=== PATIENT | female | born 1955 | race African-American/Black ===

== ENCOUNTER 2016-08-21 22:59 | Emergency (ER) | payer MEDICAID ==
[~2016-08-21] VITALS: Ht 160 cm; Wt 52.2 kg
[~2016-08-21 22:59] MED LIST: ACETAMINOPHEN-1 EAC2 ORAL; ACETAMINOPHEN-1 EAC2 PO; ANTIVERT12.5 MG PO; ATIVAN0.5 MG ORAL; BACITRACIN ZIN120 GM TP; CLARITIN10 M1 PO; FLONASE1 SPRAYS NASAL; GLUCOPHAGE500 MG PO; GLYBURIDE-METF1 EAC1 PO; KEFLEX500 MG ORAL; LIDOCAINE HCL30 ML TOPIC; MECLIZINE HCL25 MG ORAL; NORCO 5-325 TA1 EACH ORAL; PHENAZOPYRIDIN100 MG ORAL; SOMA350 MG PO; TYLENOL EXTRA500 MG ORAL; VALIUM2 MG PO; VALIUM5 MG ORAL
[2016-08-21 23:20] VITALS: BP 135/71
[2016-08-21 23:43] VITALS: BP 135/71
--- NOTE | 2016-08-22 01:06 | Emergency Room Report ---
History of Present Illness General Chief Complaint: Pain Source: Patient Present Illness HPI Patient is a 61-year-old female who presented after increased right upper extremity pain. The patient stated that she had a venipuncture several months ago and developed some bruising afterward. Patient reported having a firm area near her right hand antecubital fossa. She states that this had persistently been noted to be hard. She denied recent fever. She denied chest pain or shortness of breath. The patient was concerned that this area had remained somewhat painful. Allergies: Coded Allergies: IBUPROFEN (Verified Adverse Reaction, Intermediate, HEART PALPATATIONS, ) Patient History Past Medical History: see triage record Reviewed Nursing Documentation: PMH: Agreed, PSxH: Agreed Nursing Documentation-PMH Hx Cardiac Problems: No Hx Hypertension: No Hx Diabetes: Yes Hx Cancer: No Hx Gastrointestinal Problems: No Hx Neurological Problems: No Hx Cerebrovascular Accident: No - HYSTERECTOMY 04/30/14 Review of Systems All Other Systems: negative except mentioned in HPI Physical Exam Vital Signs Date Time Temp Pulse Resp B/P Pulse Ox O2 Delivery O2 Flow Rate FiO2 08/21/16 23:05 98.1 97 16 137/71 98 Room Air General Appearance: well appearing, no apparent distress, alert, GCS 15 Head: normocephalic, atraumatic ENT: hearing grossly normal, normal voice Neck: full range of motion, supple Respiratory: no respiratory distress, speaking full sentences Gastrointestinal: normal bowel sounds, non tender, soft Musculoskeletal: normal inspection, back normal, digits/nails normal, no calf tenderness Neurologic: normal inspection, alert, oriented x3, responsive, normal gait Psychiatric: mood/affect normal Skin: no rash, other - small palpable vein less than 1 cm no erythema Medical Decision Making Diagnostic Impression: Primary Impression: Superficial phlebitis of arm ER Course Patient presented for upper extremity pain. Differential diagnosis included but was not limited to fracture, contusion, vasculitis, phlebitis. Patient has a benign exam this is not appear to require imaging at this time. Patient does not appear to have any upper extremity swelling. This appears to be a sclerosed vein. The patient is advised to follow up with primary care doctor in 1-2 days. Patient is advised to return if any worsening condition or if any changes in status that are concerning. Last Vital Signs Date Time Temp Pulse Resp B/P Pulse Ox O2 Delivery O2 Flow Rate FiO2 1/20/17 23:05 98.1 97 16 137/71 98 Room Air Status: improved Disposition: HOME, SELF-CARE Condition: Stable Referrals: ERMELINDA RICHMOND,REFERRING (PCP) Patient Instructions: Nish Hinson Aug 22, 2016 01:06
== END 2016-08-21 23:45 | disposition home or self-care (01) ==
LOC: EMR 23:45
DX: I80.8 Phlebitis and thrombophlebitis of other sites (principal); E11.9 Type 2 diabetes mellitus without complications; Z88.6 Allergy status to analgesic agent
CPT/HCPCS: 99282

== ENCOUNTER 2016-12-03 20:40 | Emergency (ER) | payer MEDICAID ==
[~2016-12-03] VITALS: Ht 152.4 cm; Wt 51.7 kg
[2016-12-03 20:51] VITALS: BP 151/80
[2016-12-03] MEDS ORDERED: LIDOCAINE VISCO20 ML PO (21:03)
[2016-12-03] MEDS ORDERED: CLARITIN10 M2 ORAL (21:03)
[2016-12-03 21:09] VITALS: BP 145/76
--- NOTE | 2016-12-04 00:49 | Emergency Room Report ---
History of Present Illness General Chief Complaint: Sore Throat Source: Patient Present Illness HPI Patient is a 61-year-old female who presented after increased sore throat as well as a nasal congestion. Patient gradual onset of symptoms. The patient had reported some postnasal drip. She denies recent fever. She been sick for several days. Denied any cough. She reported having some mild change in her voice. She denies vomiting. Allergies: Coded Allergies: IBUPROFEN (Verified Adverse Reaction, Intermediate, HEART PALPATATIONS, ) Patient History Past Medical History: see triage record Reviewed Nursing Documentation: PMH: Agreed, PSxH: Agreed Nursing Documentation-PMH Hx Cardiac Problems: No Hx Hypertension: No Hx Diabetes: Yes Hx Cancer: No Hx Gastrointestinal Problems: No Hx Neurological Problems: No Hx Cerebrovascular Accident: No - HYSTERECTOMY 04/30/14 Review of Systems All Other Systems: negative except mentioned in HPI Physical Exam Vital Signs Date Time Temp Pulse Resp B/P Pulse Ox O2 Delivery O2 Flow Rate FiO2 12/03/16 20:45 98.4 73 16 159/79 100 Room Air General Appearance: well appearing, no apparent distress, alert, GCS 15, non- toxic Head: normocephalic, atraumatic ENT: hearing grossly normal, normal voice Neck: full range of motion, supple Respiratory: lungs clear, normal breath sounds, no respiratory distress, speaking full sentences Cardiovascular #1: normal peripheral pulses, regular rate, rhythm, no edema Gastrointestinal: normal bowel sounds, non tender, soft Musculoskeletal: no calf tenderness Neurologic: normal inspection, alert, oriented x3, normal gait Psychiatric: normal inspection, mood/affect normal Skin: no rash Medical Decision Making Diagnostic Impression: Primary Impression: Viral pharyngitis ER Course Patient presented for sore throat. Differential diagnosis included but was not limited to meningitis, exudative tonsillitis, retropharyngeal abscess, epiglottitis, strep pharyngitis. Patient's benign exam and does not appear to require any further imaging or laboratory testing at this time. Patient appears to have viral pharyngitis.The patient is advised to follow up with primary care doctor in 2-3 days. Patient is advised to return if any worsening condition or if any changes in status that are concerning. Last Vital Signs Date Time Temp Pulse Resp B/P Pulse Ox O2 Delivery O2 Flow Rate FiO2 12/03/16 21:09 98.4 81 15 145/76 100 Room Air Status: improved Disposition: HOME, SELF-CARE Condition: Stable Scripts Loratadine (CLARITIN) 10 Mg Capsule 10 MG ORAL DAILY, #30 CAP Prov: Nish Stevenson 12/03/16 Lidocaine HCl (Lidocaine HCl Viscous) 100 Ml Solution 20 ML PO NEEDED for For Pain, #200 ML Prov: Nish Stevenson 12/03/16 Referrals: [facility],REFERRING (PCP) Patient Instructions: Laryngitis Nish Stevenson December 04, 2016 00:49
== END 2016-12-03 21:09 | disposition home or self-care (01) ==
LOC: EMR 21:05
DX: J02.8 Acute pharyngitis due to other specified organisms (principal); B97.89 Other viral agents as the cause of diseases classified elsewhere; E11.9 Type 2 diabetes mellitus without complications; Z88.6 Allergy status to analgesic agent; Z90.710 Acquired absence of both cervix and uterus
CPT/HCPCS: 99284

== ENCOUNTER 2017-11-17 20:38 | Emergency (ER) | payer MEDICARE, MEDICAID ==
[~2017-11-17] VITALS: Ht 152.4 cm; Wt 48.1 kg
[~2017-11-17 20:38] MED LIST changes: +CLARITIN10 M2 ORAL; +LIDOCAINE VISCO20 ML PO
[2017-11-17 20:48] VITALS: BP 144/76
[2017-11-17] MEDS ORDERED: AMOXICILLIN500 MG ORAL (21:11)
--- NOTE | 2017-11-17 21:12 | Emergency Room Report ---
History of Present Illness General Chief Complaint: Toothache Source: Patient Present Illness HPI This is a 62-year-old female with no significant past medical history. She presents with dental pain. 2 weeks ago she was eating and bit down on something hard and cracked her left lower molar. The filling came out. She's been having pain since there.. Worse with eating. Worse with cold or hot stuff. Gum irritation. No swelling. Has not seen a dentist yet. Pain is 7 out of 10. Allergies: Coded Allergies: IBUPROFEN (Verified Adverse Reaction, Intermediate, HEART PALPATATIONS, ) Patient History Past Medical History: see triage record, old chart reviewed Past Surgical History: other Pertinent Family History: none Social History: Denies: smoking Now: No Immunizations: other Reviewed Nursing Documentation: PMH: Agreed; PSxH: Agreed Nursing Documentation-PMH Hx Cardiac Problems: No Hx Hypertension: No Hx Diabetes: Yes - Type 2 Hx Cancer: No Hx Gastrointestinal Problems: No History Of Psychiatric Problem: Yes - anxiety, depression Hx Neurological Problems: No Hx Cerebrovascular Accident: No - HYSTERECTOMY 04/30/14 Review of Systems Eye: Denies: eye pain, blurred vision ENT: Denies: ear pain, nose congestion, throat swelling Respiratory: Denies: cough, shortness of breath Cardiovascular: Denies: chest pain, palpitations Gastrointestinal: Denies: abdominal pain, diarrhea, nausea, vomiting Musculoskeletal: Denies: back pain, joint pain Skin: Denies: rash Neurological: Denies: headache, numbness Endocrine: Denies: increased thirst, increased urine Hematologic/Lymphatic: Denies: easy bruising All Other Systems: negative except mentioned in HPI Physical Exam Vital Signs Date Time Temp Pulse Resp B/P (MAP) Pulse Ox O2 Delivery O2 Flow Rate FiO2 11/17/17 20:41 98.3 73 14 144/76 98 Room Air 98.2 vitals normal Sp02 EP Interpretation: reviewed, normal General Appearance: well appearing, no apparent distress, alert Head: normocephalic, atraumatic Eyes: bilateral eye PERRL, bilateral eye EOMI ENT: hearing grossly normal, normal pharynx, other - Poor dentition. Left lower second molar has decay. No abscess for I and D. Neck: full range of motion, supple, no meningismus Respiratory: chest non-tender, lungs clear, normal breath sounds Cardiovascular #1: regular rate, rhythm, no murmur Gastrointestinal: normal bowel sounds, non tender, no mass, no organomegaly, no bruit, non-distended Musculoskeletal: back normal, gait/station normal, normal range of motion Psychiatric: mood/affect normal Skin: warm/dry Medical Decision Making Diagnostic Impression: Primary Impression: Toothache ER Course Patient with toothache. No evidence of abscess neck and twice a day. We'll discharge home with referral to see a dentist. Last Vital Signs Date Time Temp Pulse Resp B/P (MAP) Pulse Ox O2 Delivery O2 Flow Rate FiO2 11/17/17 20:48 98.2 73 14 144/76 98 Room Air 98.2 Status: unchanged Disposition: HOME, SELF-CARE Condition: Stable Scripts Amoxicillin* (AMOXIL*) 500 Mg Capsule 500 MG ORAL THREE TIMES A DAY, #21 CAP Prov: FRANKIE GOODMAN M.D. 11/17/17 Patient Instructions: Dental Pain Additional Instructions: Go see dentist ABDIEL. Return if symptom worsen. FRANKIE GOODMAN M.D. Nov 17, 2017 21:12
[2017-11-17 21:21] VITALS: BP 144/76
== END 2017-11-17 21:21 | disposition home or self-care (01) ==
LOC: EMR 21:17
DX: K08.89 Other specified disorders of teeth and supporting structures (principal); E11.9 Type 2 diabetes mellitus without complications; F41.9 Anxiety disorder, unspecified; F32.9 Major depressive disorder, single episode, unspecified; Z90.710 Acquired absence of both cervix and uterus; Z88.6 Allergy status to analgesic agent
CPT/HCPCS: 99283

== ENCOUNTER 2018-06-05 11:27 | Emergency (ER) | payer MEDICARE, MEDICAID ==
[~2018-06-05] VITALS: Ht 152.4 cm; Wt 49.4 kg
[~2018-06-05 11:27] MED LIST changes: +AMOXICILLIN500 MG ORAL
[2018-06-05 11:54] VITALS: BP 133/64
[2018-06-05] MEDS ORDERED: Bactrim Susp 20ml ORAL STA (11:56)
--- NOTE | 2018-06-05 11:59 | Emergency Room Report ---
History of Present Illness General Chief Complaint: Skin Rash/Abscess Source: Patient Present Illness HPI Patient with cyst on neck many months. Scheduled to have surgery. Possibly slept on it wrong and now has enlargement, redness and increased tenderness for 2 days. Pain rated 3/10 aching and somewhat sharp, not radiating. Worse when palpated. Some pain with rotation of neck. Denies fever or chills. No chest pain, dyspnea, NVD. Some constipation. Patient diabetic. States sugars have been slightly higher recently. Chronic back pain. Unchanged. Anxiety. > 10 years since tetanus, but refuses. She states she cannot swallow pills. Allergies: Coded Allergies: IBUPROFEN (Verified Adverse Reaction, Intermediate, HEART PALPATATIONS, ) Patient History Past Medical History: see triage record Past Surgical History: hysterectomy Social History: Denies: smoking Social History Narrative from home Reviewed Nursing Documentation: PMH: Agreed; PSxH: Agreed Nursing Documentation-PMH Past Medical History: No History, Except For Hx Cardiac Problems: No Hx Hypertension: No Hx Diabetes: Yes - Type 2 Hx Cancer: No Hx Gastrointestinal Problems: No Hx Neurological Problems: No Hx Cerebrovascular Accident: No - HYSTERECTOMY 04/30/14 Review of Systems All Other Systems: negative except mentioned in HPI Physical Exam Vital Signs Date Time Temp Pulse Resp B/P (MAP) Pulse Ox O2 Delivery O2 Flow Rate FiO2 06/05/18 11:32 98.2 82 17 133/64 97 Room Air Sp02 EP Interpretation: reviewed, normal General Appearance: well appearing, no apparent distress Head: normocephalic, atraumatic Eyes: bilateral eye normal inspection, bilateral eye PERRL ENT: hearing grossly normal, normal voice, moist mucus membranes Neck: full range of motion, supple, other - see skin Respiratory: lungs clear, no respiratory distress, speaking full sentences Cardiovascular #1: regular rate, rhythm Cardiovascular #2: 2+ radial (R) Gastrointestinal: normal inspection Musculoskeletal: back normal, digits/nails normal, gait/station normal, normal range of motion Neurologic: alert, oriented x3, normal gait, grossly normal Psychiatric: mood/affect normal, anxious Skin: other - sebaceous cyst R ant SCM, surrounding erythema, no fluctuance Medical Decision Making Diagnostic Impression: Primary Impression: Infected cyst of skin ER Course Patient with cyst on neck with worsened pain. DDX: abscess, cellulitis, infected cyst. This appears that the cyst has surrounding cellulitis. Antibiotics indicated as well as analgesia. Tetanus suggested but refused. Antibiotics begun here. Patient stable for outpatient observation and treatment. Last Vital Signs Date Time Temp Pulse Resp B/P (MAP) Pulse Ox O2 Delivery O2 Flow Rate FiO2 06/05/18 12:41 98.2 73 17 133/64 97 Room Air Status: improved Disposition: HOME, SELF-CARE Condition: Improved Scripts Bacitracin (Bacitracin) 1 Each Packet 1 EACH TP BID for 10 Days, #20 PACKET Prov: Chandana Heller 06/05/18 Acetaminophen (Tylenol) 325 Mg Tablet 650 MG ORAL Q6H PRN for Prn Pain/Headache/Temp > 101, #20 TAB 0 Refills Prov: Santiago Baez MD 06/05/18 Sulfamethoxazole/Trimethoprim Susp* (BACTRIM SUSP*) 473 Ml Oral.susp 20 ML ORAL TWICE A DAY for 7 Days, ML Prov: Santiago Baez MD 06/05/18 Santiago Baez MD Jun 05, 2018 11:59
[2018-06-05] MEDS ORDERED: Bacitracin Oint UD TOPIC ONE (12:00)
[2018-06-05] MEDS ORDERED: TYLENOL325 MG ORAL (12:06)
[2018-06-05] MEDS ORDERED: SULFAMETHOXAZO473 ML ORAL (12:06)
[2018-06-05] MEDS ORDERED: BACITRACIN1 EAC1 TP (12:35)
== END 2018-06-05 12:49 | disposition home or self-care (01) ==
LOC: EMR 12:40
DX: L72.9 Follicular cyst of the skin and subcutaneous tissue, unspecified (principal); L08.89 Other specified local infections of the skin and subcutaneous tissue; E11.9 Type 2 diabetes mellitus without complications
CPT/HCPCS: 99282

== ENCOUNTER 2019-03-05 11:35 | Emergency (ER) | payer MEDICARE, MEDICAID ==
[~2019-03-05] VITALS: Ht 152.4 cm; Wt 45.4 kg
[~2019-03-05 11:35] MED LIST changes: +BACITRACIN1 EAC1 TP; +SULFAMETHOXAZO473 ML ORAL; +TYLENOL325 MG ORAL
[2019-03-05 11:43] VITALS: BP 154/74
--- NOTE | 2019-03-05 11:49 | NUR ---
ED Nurse Note: patient walked into ED c/o bug bites on her back and on the right eyelid. patient c/o itchiness and swelling.
[2019-03-05] MEDS ORDERED: DiphenhydrAMINE & Zinc 28g Cream TOPIC ONE (12:00)
[2019-03-05] MEDS ORDERED: Dexamethasone 4mg/ml vial ORAL ONE (12:00)
[2019-03-05] MEDS ORDERED: HYDROCO (12:08)
[2019-03-05] MEDS ORDERED: ANTI-ITCH28 G1 TP (12:08)
--- NOTE | 2019-03-05 12:08 | Emergency Room Report ---
History of Present Illness General Chief Complaint: Animal Bite Source: Patient Present Illness HPI 63-year-old female presents with itching she states some things been biting her for 1.5 weeks, she has a rash, on her right upper back, left arm, right eye, she states the severity is moderate, aggravated by bites, alleviated with cream , patient denies any chest pain shortness of breath, patient is concerned that there is something in her house. Allergies: Coded Allergies: IBUPROFEN (Verified Adverse Reaction, Intermediate, HEART PALPATATIONS, ) Patient History Past Medical History: see triage record Now: No Reviewed Nursing Documentation: PMH: Agreed; PSxH: Agreed Nursing Documentation-PMH Past Medical History: No History, Except For Hx Hypertension: No Hx Diabetes: Yes - Type 2 Hx Cancer: No Hx Gastrointestinal Problems: No Hx Neurological Problems: No Hx Cerebrovascular Accident: No - HYSTERECTOMY 04/30/14 Review of Systems All Other Systems: negative except mentioned in HPI Physical Exam Vital Signs Date Time Temp Pulse Resp B/P (MAP) Pulse Ox O2 Delivery O2 Flow Rate FiO2 03/05/19 11:43 99.0 81 17 154/74 (100) 95 Room Air Sp02 EP Interpretation: reviewed, normal General Appearance: well appearing, no apparent distress, alert Head: normocephalic, atraumatic Eyes: bilateral eye PERRL, bilateral eye EOMI ENT: uvula midline, moist mucus membranes Neck: supple, thyroid normal, supple/symm/no masses Respiratory: lungs clear, no respiratory distress, no retraction, no accessory muscle use Cardiovascular #1: normal peripheral pulses, regular rate, rhythm, no edema, no gallop, no murmur Gastrointestinal: non tender, soft, no guarding, no rebound Musculoskeletal: normal inspection Neurologic: alert, oriented x3 Psychiatric: mood/affect normal Skin: warm/dry, other - Patient with urticarial rashes right upper back, left hand, right arm, small punctate lesions in the middle Medical Decision Making Diagnostic Impression: Primary Impression: Insect bite Qualified Codes: S40.861A - Insect bite (nonvenomous) of right upper arm, initial encounter; W57.XXXA - Bitten or stung by nonvenomous insect and other nonvenomous arthropods, initial encounter ER Course 63-year-old female presents with multiple bites to the upper arm, low suspicion for cellulitis most likely histamine release secondary to insect bite, patient has her door open at night, patient counseled to close her door because she does not have a screen, disposition home with return precautions. Will provide patient with hydrocortisone and Benadryl cream Last Vital Signs Date Time Temp Pulse Resp B/P (MAP) Pulse Ox O2 Delivery O2 Flow Rate FiO2 03/05/19 11:43 99.0 62 17 154/74 95 Room Air Disposition: HOME, SELF-CARE Condition: Stable Scripts Hydrocortisone 2% Cream (ANTI-ITCH 2% CREAM) Y Cr 28 GM TP DAILY, #1 GM Prov: Jose Dangelo MD 03/05/19 [hydroco] No Conflict Check Prov: Jose Dangelo MD 03/05/19 Referrals: [facility] Patient Instructions: Insect Bite, [id number] Additional Instructions: The patient was provided with discharge instructions, notified to follow-up with a primary care doctor and or specialist in the next 24-48 hours, and to return to the ED if they have worsening of their symptoms. Please note that this report is being documented using [employer] technology. This can lead to erroneous entry secondary to incorrect interpretation by the dictating instrument. Jose Dangelo MD Mar 05, 2019 12:08
--- NOTE | 2019-03-05 12:14 | NUR ---
ER DISCHARGE NOTE: Patient is cleared to be discharged per ERMD, pt is aox4, on room air, with stable vital signs. pt was given dc and prescription instructions, pt was able to verbalize understanding, pt id band removed. pt is able to ambulate with steady gait. pt took all belongings.
[2019-03-05] MEDS ORDERED: Hydrocortisone 2.5% Oint 30gm TOPIC ONE (12:15)
== END 2019-03-05 13:12 | disposition home or self-care (01) ==
LOC: EMR 12:15
DX: S40.861A Insect bite (nonvenomous) of right upper arm, initial encounter (principal); W57.XXXA Bitten or stung by nonvenomous insect and other nonvenomous arthropods, initial encounter; E11.9 Type 2 diabetes mellitus without complications; Z90.710 Acquired absence of both cervix and uterus; Z88.6 Allergy status to analgesic agent; L50.9 Urticaria, unspecified
CPT/HCPCS: 99282

== ENCOUNTER 2020-03-13 13:34 | Emergency (ER) | payer MEDICARE, MEDICAID ==
[~2020-03-13] VITALS: Ht 160 cm; Wt 44.5 kg
[~2020-03-13 13:34] MED LIST changes: +ANTI-ITCH28 G1 TP; +HYDROCO
[2020-03-13 14:41] VITALS: BP 140/75
--- NOTE | 2020-03-13 14:43 | NUR ---
ED Nurse Note:pt. came from home with c/o left shoulder/neck pain since this morning, no injury
--- NOTE | 2020-03-13 15:36 | NUR ---
ED Nurse Note:blood and urine sent to labs
[2020-03-13 15:39] LABS: APPEARANCE,URINE CLEAR; BILIRUBIN, URINE NEGATIVE (NEGATIVE); COLOR,URINE YELLOW; GLUCOSE, URINE (UA) 4+ (NEGATIVE); KETONES,URINE NEGATIVE (NEGATIVE); LEUKOCYTE ESTERASE ,URINE 2+ (NEGATIVE); NITRITE,URINE NEGATIVE (NEGATIVE); PH,URINE 5 (4.5-8.0); PROTEIN,URINE NEGATIVE (NEGATIVE); UROBILINOGEN,URINE NORMAL MG/DL (0.0-1.0)
[2020-03-13 15:49] LABS: EOSINOPHILS % (AUTO) 0.3 % (0.0-3.0); HEMATOCRIT 39.7 % (37.0-47.0); HEMOGLOBIN 12.4 G/DL (12.0-16.0); LYMPHOCYTES % (AUTO) 27.2 % (20.0-45.0); MEAN CORPUSCULAR VOLUME 95 FL (80-99); MONOCYTES % (AUTO) 6.2 % (1.0-10.0); NEUTROPHILS % (AUTO) 65.4 % (45.0-75.0); PLATELET COUNT 209 K/UL (150-450); RED BLOOD COUNT 4.18 M/UL (4.20-5.40); RED CELL DISTRIBUTION WIDTH 12.1 % (11.6-14.8); WHITE BLOOD COUNT 7.8 K/UL (4.8-10.8)
[2020-03-13 15:53] LABS: ANION GAP 9 mmol/L (5-15); BLOOD UREA NITROGEN 11 mg/dL (7-18); CALCIUM 9.9 MG/DL (8.5-10.1); CARBON DIOXIDE 30 MMOL/L (21-32); CHLORIDE 102 MMOL/L (98-107); SODIUM 141 MMOL/L (136-145)
--- NOTE | 2020-03-13 15:54 | Diagnostic Imaging Report ---
Indication: Reason For Exam: PAIN Technique: Spiral acquisitions obtained through the neck. Multiplanar reconstructions were generated.No IV contrast utilized, for emergency room physician request. Total dose length product 433 mGycm. CTDIvol(s) 14 mGy. Dose reduction achieved using automated exposure control Comparison: none Findings: Lack of IV contrast limits evaluation. The tonsils are prominent bilaterally, contains calcifications. No significant prevertebral soft tissue swelling. The oropharynx is otherwise unremarkable. The nasopharynx, hypopharynx, and larynx are unremarkable. No definite findings to suggest abscess, although evaluation for such is very limited in the absence of IV contrast. No radiopaque foreign body demonstrated. The parapharyngeal spaces are clear, symmetric. The visualized sinuses are unremarkable. The dentition demonstrate prior dental extractions, otherwise intact. The bones are grossly unremarkable except for degenerative spondylosis changes of the lower cervical spine. The thyroid demonstrates a 9 mm nodule in the lower pole of the right thyroid lobe. The included upper lungs are clear. The upper mediastinum is unremarkable. Impression: Limited exam, due to lack of IV contrast administration Nonspecific mild bilateral tonsillar prominence, could be baseline for this patient or could indicate mild inflammation. Correlate with clinical findings No definite acute abnormality otherwise 9 mm right lower pole thyroid nodule. No further follow-up necessary Degenerative changes of the cervical spine The CT scanner at [facility] is accredited by the [employer] and the scans are performed using protocols designed to limit radiation exposure to as low as reasonably achievable to attain images of sufficient resolution adequate for diagnostic evaluation.
[2020-03-13 16:04] LABS: ALANINE AMINOTRANSFERASE 20 U/L (12-78); ALKALINE PHOSPHATASE 70 U/L (46-116); ASPARTATE AMINO TRANSFERASE 16 U/L (15-37); BILIRUBIN,TOTAL 0.7 MG/DL (0.2-1.0)
--- NOTE | 2020-03-13 16:06 | Emergency Room Report ---
History of Present Illness General Chief Complaint: Neck Pain Source: Patient Present Illness HPI 64-year-old female with history of anxiety and arthritis here complaining of sudden onset of posterior left-sided neck pain that started this morning upon waking up radiating to left shoulder. Denies any fall or injury. Reports that this morning she felt like part of her neck on the backside was sticking out however it was not pulsatile. Patient reports that after applying ice she felt that the swelling went down. Does not know whether this is related to her sleeping wrongfully last night. Denies any chest pain chest pain radiation. Denies any palpitation. Patient is extremely worried and reports that she has history of anxiety. Patient denies any headache and dizziness, unilateral generalized weakness. Patient is neurovascularly intact. Denies any tingling or numbness. No JVD noted. Denies any tobacco smoke, marijuana use, no other drug use. Denies abdominal pain, nausea or vomiting. Allergies: Coded Allergies: IBUPROFEN (Verified Adverse Reaction, Intermediate, HEART PALPATATIONS, ) COVID-19 Screening Contact w/high risk pt: No Experienced COVID-19 symptoms?: No COVID-19 Testing performed ASSAYER: Yes - one month ago COVID-19 Screening: Negative COVID-19 COVID-19 Testing Source: nasal Patient History Past Medical History: see triage record Past Surgical History: none Pertinent Family History: none Now: No Immunizations: UTD Reviewed Nursing Documentation: PMH: Agreed; PSxH: Agreed Nursing Documentation-PMH Past Medical History: No History, Except For Hx Hypertension: No Hx Diabetes: Yes - Type 2 Hx Cancer: No Hx Gastrointestinal Problems: No Hx Neurological Problems: No Hx Cerebrovascular Accident: No - HYSTERECTOMY 04/30/14 Review of Systems All Other Systems: negative except mentioned in HPI Physical Exam Vital Signs Date Time Temp Pulse Resp B/P (MAP) Pulse Ox O2 Delivery O2 Flow Rate FiO2 03/13/20 14:22 98.4 105 17 140/75 (96) 98 Room Air Sp02 EP Interpretation: reviewed, normal General Appearance: no apparent distress, alert, GCS 15, non-toxic Head: normocephalic, atraumatic Eyes: bilateral eye normal inspection, bilateral eye PERRL ENT: hearing grossly normal, normal pharynx, no angioedema, normal voice Neck: full range of motion, supple, supple/symm/no masses Respiratory: chest non-tender, lungs clear, normal breath sounds, speaking full sentences Cardiovascular #1: regular rate, rhythm, no edema, no JVD, no murmur Cardiovascular #2: 2+ carotid (R), 2+ carotid (L), 2+ radial (R), 2+ radial (L) Gastrointestinal: normal bowel sounds, non tender, soft, no mass, no organomegaly, no peritonitis, no bruit, non-distended, no guarding, no rebound Rectal: deferred Genitourinary: no CVA tenderness Musculoskeletal: back normal, no calf tenderness, no lower extremity edema, non -tender, other - No impingement sign noted Neurologic: alert, motor strength/tone normal, oriented x3, sensory intact, responsive, speech normal Psychiatric: judgement/insight normal, memory normal, mood/affect normal, no suicidal/homicidal ideation Skin: no rash Lymphatic: no adenopathy Medical Decision Making PA Attestation All diagnoses and treatment plans were reviewed and discussed with my supervising physician Dr. Franco Diagnostic Impression: Primary Impression: Cervical strain Additional Impressions: Thyroid nodule UTI (urinary tract infection) ER Course 64-year-old female with history of anxiety and arthritis here complaining of sudden onset of posterior left-sided neck pain that started this morning upon waking up radiating to left shoulder. Denies any fall or injury. Reports that this morning she felt like part of her neck on the backside was sticking out however it was not pulsatile. Patient reports that after applying ice she felt that the swelling went down. Does not know whether this is related to her sleeping wrongfully last night. Denies any chest pain chest pain radiation. Denies any palpitation. Patient is extremely worried and reports that she has history of anxiety. Patient denies any headache and dizziness, unilateral generalized weakness. Patient is neurovascularly intact. Denies any tingling or numbness. No JVD noted. Denies any tobacco smoke, marijuana use, no other drug use. Denies abdominal pain, nausea or vomiting. Ddx considered but are not limited to: cervical spine fracture, cervical spine strain, cervical spine sprain, carotid artery disease, JVD, thyroid nodule, benign mass, malignant mass Vital signs: are WNL, pt. is afebrile H&PE are most consistent with: Incidental finding of a thyroid nodule about 9- year-old finding of UTI, cervical strain ORDERS: C-spine CT EKG, CBC, CMP, urine, straight, chest x-ray, EKG, troponin, Robaxin, tylenol, lidocaine patch, keflex ED INTERVENTIONS: None required at this time. DISCHARGE: At this time pt. is stable for d/c to home. Will provide printed patient care instructions, and any necessary prescriptions. Care plan and follow up instructions have been discussed with the patient prior to discharge. Patient take medication as directed, follow primary care provider regards to thyroid nodule and neck pain, if worsening symptoms return to the emergency room. Patient is to be treated with antibiotics due to diabetic status EKG Diagnostic Results Rate: normal Rhythm: NSR ST Segments: no acute changes Other Impression No acute ST changes Chest X-Ray Diagnostic Results Chest X-Ray Diagnostic Results : Chest X-Ray Ordered: Yes # of Views/Limited/Complete: 1 View Indication: Other EP Interpretation: Yes SHAGGY Xray: Interpretation reviewed, by supervising MD, and agrees with findings. Interpretation: no consolidation, no effusion, no pneumothorax Impression: No acute disease Electronically Signed by: Chandana Irving PA-C Other X-Ray Diagnostic Results Other X-Ray Diagnostic Results : X-Ray ordered: Left shoulder # of Views/Limited Vs Complete: 3 View Indication: Pain EP Interpretation: Yes SHAGGY Xray: Interpretation reviewed, by supervising MD, and agrees with findings. Interpretation: no dislocation, no soft tissue swelling, no fractures Impression: No acute disease Electronically Signed by: Chandana Irving PA-C CT/MRI/US Diagnostic Results CT/MRI/US Diagnostic Results : Imaging Test Ordered: CT neck no contrast Impression , 9 mm to the left. Thyroid nodule noted, otherwise within normal limits Last Vital Signs Date Time Temp Pulse Resp B/P (MAP) Pulse Ox O2 Delivery O2 Flow Rate FiO2 03/13/20 14:41 98.4 105 17 140/75 98 Room Air Disposition: HOME, SELF-CARE Condition: Stable Scripts Methocarbamol* (ROBAXIN-500*) 500 Mg Tablet 500 MG ORAL TID PRN for For Pain, #15 TAB 0 Refills Prov: Chandana Heller 03/13/20 Lidocaine Patch* (Lidoderm Patch*) 1 Each Adh..patch 1 PATCH TOPIC DAILY, #30 PATCH Patch(es) may remain in place for up to 12 hours in any 24-hour period. Prov: Chandana Heller 03/13/20 Acetaminophen* (TYLENOL EXTRA STRENGTH*) 500 Mg Tablet 500 MG ORAL Q8H PRN for Prn Headache/Temp > 101, #30 TAB 0 Refills Prov: Chandana Heller 03/13/20 Cephalexin* (KEFLEX*) 500 Mg Capsule 500 MG ORAL EVERY 12 HOURS for 7 Days, #14 CAP 0 Refills Prov: Chandana Heller 03/13/20 Referrals: NON PHYSICIAN (PCP) Patient Instructions: Cervical Strain and Sprain With [facility]hab[facility], Thyroid Nodule, Urinary Tract Infection, [place] Additional Instructions: Take medication as directed, follow-up with your primary care provider, worsening symptoms return to the emergency room Chandana Heller Mar 13, 2020 16:06
[2020-03-13] MEDS ORDERED: TYLENOL EXTRA500 MG ORAL (16:07)
[2020-03-13] MEDS ORDERED: ROBAXIN-500MG ORAL (16:07)
[2020-03-13] MEDS ORDERED: CEPHALEXIN500 MG ORAL (16:07)
[2020-03-13] MEDS ORDERED: LIDODERM700 M1 TOPIC (16:07)
[2020-03-13 16:30] VITALS: BP 140/75
--- NOTE | 2020-03-13 16:30 | NUR ---
ER DISCHARGE NOTE: Patient is cleared to be discharged per ERMD, pt is aox4, on room air, with stable vital signs. pt was given dc and prescription instructions, pt was able to verbalize understanding, pt id band and iv site removed without complications. pt is able to ambulate with steady gait. pt took all belongings.
--- NOTE | 2020-03-13 17:33 | Diagnostic Imaging Report ---
Indication: Chest pain Technique: One view of the chest Comparison: 07/21/2016 Findings: No acute infiltrates, effusions, or congestion. Tortuous calcified aorta. Normal heart size. Upper mediastinum unremarkable. No significant change Impression: No acute process.
--- NOTE | 2020-03-13 17:33 | Diagnostic Imaging Report ---
Indication: Left shoulder pain Technique: 3 views of the left shoulder Comparison: none Findings: No acute fractures. No dislocations. Joint spaces are preserved. Bones are osteoporotic Impression: No acute process
== END 2020-03-13 16:30 | disposition home or self-care (01) ==
LOC: EMR 14:25
DX: S16.1XXA Strain of muscle, fascia and tendon at neck level, initial encounter (principal); E04.1 Nontoxic single thyroid nodule; N39.0 Urinary tract infection, site not specified; E11.9 Type 2 diabetes mellitus without complications; Z88.6 Allergy status to analgesic agent; F41.9 Anxiety disorder, unspecified; M19.90 Unspecified osteoarthritis, unspecified site; Z90.710 Acquired absence of both cervix and uterus; M25.512 Pain in left shoulder; X58.XXXA Exposure to other specified factors, initial encounter; Y92.9 Unspecified place or not applicable
CPT/HCPCS: 36415; 70490; 71045; 80053; 81003; 83880; 84484; 85025; 93005; 99284